=== PATIENT | male | born 1970 | race Caucasian/White ===

== ENCOUNTER 2021-06-17 22:03 | Inpatient (IN) ==
[2021-06-17 22:40] LABS: Basophils # 0.1 K/mcL (0.0-0.2); Basophils % 0.9 %; Eosinophils # 0.1 K/mcL (0.0-0.6); Eosinophils % 1.5 %; Hematocrit 40.3 % (37.5-50.1); Immature Granulocytes % 0.2 % (0-4); Immature Platelets 7.7 % (1.1-6.1); Lymphocytes # 3.1 K/mcL (0.6-4.6); Lymphocytes % 57.9 %; Mean Corpuscular HGB Conc 34.7 g/dL (31.6-35.5); Mean Corpuscular Hemoglobin 33.3 pg (28.0-33.3); Mean Platelet Volume 10.9 fL (9.4-12.4); Monocytes # 0.4 K/mcL (0.0-1.3); Monocytes % 6.5 %; Neutrophils # 1.8 K/mcL (1.6-8.9); Red Cell Distribution Width 13.2 % (11.5-14.5); White Blood Count 5.4 K/mcL (4.3-11.1)
[2021-06-17 22:46] LABS: Prothrombin Time 12.1 Seconds (9.4-12.1)
[2021-06-17 22:48] LABS: Activated Partial Thrombo Time 27.6 Seconds (26.0-36.0)
[2021-06-17 22:57] LABS: Platelet Count 53 K/mcL (140-400)
[2021-06-17 22:58] LABS: Platelet Estimate Decreased (Normal)
[2021-06-17 23:02] LABS: Alanine Aminotransferase 77 Units/L (7-52); Albumin 2.8 g/dL (3.5-5.7); Albumin/Globulin Ratio 0.9 (1.1-2.2); Alkaline Phosphatase 109 Units/L (34-104); Aspartate Amino Transferase 68 Units/L (13-39); BUN/Creatinine Ratio 9 (6-26); Bilirubin,Total 0.6 mg/dL (0.3-1.0); Blood Urea Nitrogen 8 mg/dL (6-20); Calcium 7.8 mg/dL (8.6-10.3); Carbon Dioxide 22 mEq/L (23-29); Chloride 104 mEq/L (98-107); Ethanol 195 mg/dL (Less than 10); Glucose 87 mg/dL (70-105); Osmolality,Calculated 276 (280-300); Potassium 3.6 mEq/L (3.5-5.1); Sodium 134 mEq/L (136-145); Total Protein 5.8 g/dL (6.4-8.9); eGFR For African Americans > 60 (> 60); eGFR For Non-African Americans > 60 (> 60)
[2021-06-18] MEDS ORDERED: *HR* LORazepam 2 MG/ML VIAL IVP PRN ×2 (01:40)
[2021-06-18] MEDS ORDERED: Ondansetron 4 MG/2 ML VIAL IVP PRN (01:40)
[2021-06-18] MEDS ORDERED: *HR* Promethazine 25 MG/ML VIAL IM PRN (01:40)
[2021-06-18] MEDS ORDERED: Melatonin 3 MG TABLET PO PRN (01:40)
[2021-06-18] MEDS ORDERED: Naloxone 0.4 MG/ML INJ IVP PRN (01:40)
[2021-06-18] MEDS ORDERED: Acetaminophen 325 MG TABLET PO PRN (01:40)
[2021-06-18] MEDS ORDERED: Aspirin Enteric Coated 81 MG Tablet PO SCH (09:00)
[2021-06-18] MEDS: Thiamine (B-1) 100 MG TABLET PO SCH (10:59)
[2021-06-18] MEDS: Folic Acid 1 MG TABLET PO SCH (10:59)
[2021-06-18] MEDS: *HR* LORazepam 2 MG/ML VIAL IVP PRN ×2 (10:59→15:08)
[2021-06-19 07:05] LABS: Mean Corpuscular HGB Conc 35.2 g/dL (31.6-35.5); Mean Corpuscular Hemoglobin 33.3 pg (28.0-33.3)
[2021-06-19 07:07] LABS: Basophils # 0.1 K/mcL (0.0-0.2); Basophils % 1.3 %; Eosinophils # 0.1 K/mcL (0.0-0.6); Eosinophils % 2.1 %; Hematocrit 38.1 % (37.5-50.1); Hemoglobin 13.4 g/dL (12.9-16.9); Immature Platelets 8.3 % (1.1-6.1); Lymphocytes # 2.2 K/mcL (0.6-4.6); Lymphocytes % 57.5 %; Mean Corpuscular Volume 94.8 fL (83.0-100.0); Mean Platelet Volume 11.7 fL (9.4-12.4); Monocytes # 0.4 K/mcL (0.0-1.3); Monocytes % 11.3 %; Neutrophils # 1.1 K/mcL (1.6-8.9); Red Blood Count 4.02 M/mcL (4.19-5.50); Segmented Neutrophils % 27.8 %; White Blood Count 3.8 K/mcL (4.3-11.1)
[2021-06-19 07:19] LABS: Platelet Count 49 K/mcL (140-400)
[2021-06-19 07:21] LABS: Alanine Aminotransferase 69 Units/L (7-52); Albumin 2.6 g/dL (3.5-5.7); Albumin/Globulin Ratio 0.9 (1.1-2.2); Alkaline Phosphatase 110 Units/L (34-104); Aspartate Amino Transferase 81 Units/L (13-39); BUN/Creatinine Ratio 8 (6-26); Bilirubin,Total 1.1 mg/dL (0.3-1.0); Blood Urea Nitrogen 7 mg/dL (6-20); Calcium 8.2 mg/dL (8.6-10.3); Carbon Dioxide 23 mEq/L (23-29); Chloride 104 mEq/L (98-107); Globulin 2.9 g/dL (2.4-3.5); Glucose 139 mg/dL (70-105); Magnesium 1.7 mg/dL (1.6-2.6); Osmolality,Calculated 280 (280-300); Potassium 3.2 mEq/L (3.5-5.1); Sodium 135 mEq/L (136-145); Total Protein 5.5 g/dL (6.4-8.9); eGFR For African Americans > 60 (> 60); eGFR For Non-African Americans > 60 (> 60)
[2021-06-19] MEDS: Folic Acid 1 MG TABLET PO SCH (08:41)
[2021-06-19] MEDS: Thiamine (B-1) 100 MG TABLET PO SCH (08:41)
[2021-06-19] MEDS: *HR* LORazepam 2 MG/ML VIAL IVP PRN ×2 (08:41→17:25)
[2021-06-19] MEDS ORDERED: *HR* LORazepam 2 MG/ML VIAL IVP ONE (10:34)
[2021-06-19 14:28] LABS: Folate > 22.3 ng/mL (3.0-16.0); Vitamin B12 777 pg/mL (250-1100)
[2021-06-19 14:29] LABS: % Iron Saturation 80 % (20-55); Ferritin 614 ng/mL (20-250); Iron 154 mcg/dL (65-175); Transferrin 137 mg/dL (203-362)
[2021-06-20 05:05] VITALS: BP 117/71; PULSE 58; TEMP 98; O2SAT 95
[2021-06-20 05:53] LABS: Basophils % 1.1 %; Eosinophils # 0.1 K/mcL (0.0-0.6); Eosinophils % 2.4 %; Hematocrit 37.6 % (37.5-50.1); Immature Granulocytes % 0.5 % (0-4); Immature Platelets 8.7 % (1.1-6.1); Lymphocytes # 1.8 K/mcL (0.6-4.6); Lymphocytes % 49.1 %; Mean Corpuscular HGB Conc 34.6 g/dL (31.6-35.5); Mean Corpuscular Volume 95.4 fL (83.0-100.0); Monocytes # 0.4 K/mcL (0.0-1.3); Monocytes % 10.5 %; Neutrophils # 1.4 K/mcL (1.6-8.9); Red Blood Count 3.94 M/mcL (4.19-5.50); Red Cell Distribution Width 12.8 % (11.5-14.5); Segmented Neutrophils % 36.4 %; White Blood Count 3.7 K/mcL (4.3-11.1)
[2021-06-20 05:54] LABS: Platelet Count 42 K/mcL (140-400)
[2021-06-20 06:12] LABS: Alanine Aminotransferase 90 Units/L (7-52); Albumin 2.7 g/dL (3.5-5.7); Albumin/Globulin Ratio 0.9 (1.1-2.2); Alkaline Phosphatase 111 Units/L (34-104); Aspartate Amino Transferase 105 Units/L (13-39); BUN/Creatinine Ratio 4 (6-26); Blood Urea Nitrogen 3 mg/dL (6-20); Calcium 8.2 mg/dL (8.6-10.3); Carbon Dioxide 23 mEq/L (23-29); Chloride 106 mEq/L (98-107); Glucose 144 mg/dL (70-105); Magnesium 1.7 mg/dL (1.6-2.6); Osmolality,Calculated 281 (280-300); Potassium 3.2 mEq/L (3.5-5.1); Sodium 136 mEq/L (136-145); Total Protein 5.7 g/dL (6.4-8.9); eGFR For African Americans > 60 (> 60); eGFR For Non-African Americans > 60 (> 60)
== END 2021-06-20 10:22 | disposition left against medical advice (07) | DRG 894 ==
LOC: EMEROOARM 22:03 → CDU 22:03 → SUATTDRO 06-18 00:09 → CDU 06-18 00:29 → 3ANU 06-18 05:55
PROVIDERS: ADMIT Internal Medicine; ATTEND Internal Medicine